=== PATIENT | female | born 1950 | race Caucasian/White ===

== ENCOUNTER → 2018-09-25 09:46 | Outpatient (CLI) | payer MEDICARE, OTHER, SELFPAY ==
--- NOTE | 2018-09-25 | US_ITS ---
US thyroid HISTORY: ITS.REASON: RIGHT THYROID NODULE ORDERING PHYSICIAN: Kristofer Blanco MD PATIENT AGE: 67 years Comparison: None FINDINGS: The right lobe of the thyroid gland is 4.7 x 1.6 x 1.6 cm. There is diffuse heterogeneous echogenicity. Multiple nodules are present including 6 x 7 mm slightly hypoechoic nodule in the upper pole, 10 x 6 mm isoechoic nodule in the mid polar region, 11 x 10 mm isoechoic nodule in the mid polar region, a 14 mm isoechoic nodule in the lower pole, and a 1.7 x 1.2 cm slightly hypoechoic nodule in the lower pole. This was a nodule that was targeted for biopsy. There is increased blood flow to the right lobe of the thyroid gland. The left lobe is 3.9 x 1.3 x 1.2 cm showing heterogeneous echogenicity with no discrete nodule. The isthmus has an unremarkable appearance IMPRESSION: Multiple nodules of the right lobe of the thyroid gland the largest in the lower pole at 1.6 cm likely related to multinodular goiter.
--- NOTE | 2018-09-25 09:51 | US_ITS ---
US FNA Thyroid HISTORY: ITS.REASON: RT THYROID NODULE, dominant nodule in the lower pole on the right ORDERING PHYSICIAN: Kristofer Blanco MD PATIENT AGE: 67 years COMPARISON: None TECHNIQUE: Following obtaining informed consent, using aseptic technique and local anesthesia with buffered lidocaine, fine-needle aspiration was performed of the nodule of interest using sonographic guidance. 3 passes were made into the nodule with a 25-gauge needle. An additional pass was made into the nodule using a 21-gauge needle. Specimen was given to cytology. The patient tolerated the procedure well without evidence of immediate complications and left the ultrasound suite in stable condition. CYTOLOGY:Pending IMPRESSION: Uneventful ultrasound-guided fine-needle aspiration of the lower pole nodule of the right lobe of the thyroid gland. Cytology pending
== END ==
PROVIDERS: PCP Nurse Practitioner Family; Visit Provider Otolaryngology
DX: E04.1 Nontoxic single thyroid nodule (principal); E06.1 Subacute thyroiditis
CPT/HCPCS: 10005; 76536; 76942; 88173